=== PATIENT | male | born 1990 | race Caucasian/White ===

== ENCOUNTER 2024-04-05 22:22 | Outpatient (REF) | payer OTHER, SELFPAY | END 2024-04-05 22:23 | disposition home or self-care (01) | LOC: NPINS 22:22 | PROVIDERS: Student in an Organized Health Care Education/Training Program; PCP Family Medicine | DX: Z31.49 Encounter for other procreative investigation and testing (principal) | CPT/HCPCS: 88262 ==

== ENCOUNTER 2025-01-26 10:51 | Outpatient (CLI) | payer BC, SELFPAY | END 2025-01-26 10:52 | disposition home or self-care (01) | PROVIDERS: PCP Family Medicine; Visit Provider Family Medicine | DX: E78.5 Hyperlipidemia, unspecified (principal); F90.2 Attention-deficit hyperactivity disorder, combined type | CPT/HCPCS: 80053; 80061 ==